=== PATIENT | female | born 1985 | race Caucasian/White ===

== ENCOUNTER 2019-03-17 03:38 | Emergency (ER) | payer SELFPAY ==
[~2019-03-17] VITALS: Ht 165.1 cm; Wt 59.0 kg
[2019-03-17 05:47] LABS: HEMATOCRIT. 41.5 % (36.0-48.0); MEAN CORPUSCULAR VOLUME 94.5 fL (81.0-99.0); MEAN PLATELET VOLUME 8.7 fl (7.4-10.4); PLATELET 214 x1000/uL (130-400); RED BLOOD CELL COUNT 4.39 mill/uL (4.2-5.4); RED CELL DISTRIBUTION WIDTH 13.4 % (11.6-14.6)
[2019-03-17 05:53] LABS: CHLORIDE 107 mEq/L (98-107)
[2019-03-17] MEDS ORDERED: SODIUM CHLORIDE 0.9% 1,000 ML IV ONE (06:01)
[2019-03-17 06:31] LABS: PLATELET ESTIMATE NORMAL
[2019-03-17 06:51] LABS: *AMPHETAMINES SCREEN URINE NEGATIVE (NEGATIVE); *BARBITURATES SCREEN URINE NEGATIVE (NEGATIVE); *BENZODIAZEPINES SCREEN URINE NEGATIVE (NEGATIVE); METHADONE URINE SCREEN NEGATIVE (NEGATIVE)
[2019-03-17 06:52] LABS: OPIATES URINE SCREEN NEGATIVE (NEGATIVE); PHENCYCLIDINE URINE SCREEN NEGATIVE (NEGATIVE)
[2019-03-17 06:58] LABS: *COCAINE SCREEN URINE PRESUMTIVE POSITIVE (NEGATIVE); CANNABINOID URINE SCREEN PRESUMTIVE POSITIVE (NEGATIVE)
[2019-03-17 07:33] VITALS: BP 131/79
== END 2019-03-17 07:57 | disposition home or self-care (01) ==
LOC: ER 03:38
DX: T40.5X1A Poisoning by cocaine, accidental (unintentional), initial encounter (principal); R07.89 Other chest pain; R00.2 Palpitations; F14.188 Cocaine abuse with other cocaine-induced disorder; F10.129 Alcohol abuse with intoxication, unspecified; Y90.0 Blood alcohol level of less than 20 mg/100 ml; I10 Essential (primary) hypertension; Z72.0 Tobacco use; Y92.89 Other specified places as the place of occurrence of the external cause
CPT/HCPCS: 36415; 71045; 80053; 80305; 80320; 81025; 83880; 84484; 85025; 93005; 99284; J7030; Z7610; G0480